=== PATIENT | male | born 1990 | race Caucasian/White ===

== ENCOUNTER 2020-01-03 08:41 | Emergency (ER) | payer SELFPAY ==
[~2020-01-03] VITALS: Ht 193 cm; Wt 82.6 kg
[2020-01-03] MEDS ORDERED: ONDANSETRON HCL INJ 2MG/ML 2ML 2 MG/ML VIAL IV STA (09:07)
[2020-01-03] MEDS ORDERED: SODIUM CHLORIDE 0.9% 1000ML 1,000 ML IV SCH (09:15)
--- NOTE | 2020-01-03 09:25 | Diagnostic Imaging Report ---
EXAMINATION: CXR 2 VIEW - HOPD INDICATION: Cough COMPARISON: None FINDINGS: LINES/TUBES:None LUNGS:The lungs are well-inflated. No focal consolidation or pulmonary edema. PLEURA:No pleural effusion or pneumothorax. MEDIASTINUM:The cardiomediastinal silhouette appears normal in size and shape. BONES/SOFT TISSUES:No acute osseous injury. ABDOMEN:No free air under the diaphragm. IMPRESSION: No focal pneumonia or pulmonary edema. Signed by: Cyndee Cabrales MD on 01/03/2020 9:23 AM
[2020-01-03 10:02] VITALS: BP 129/84
--- OUTSIDE RECORDS SUMMARY | 2020-01-03 19:35 | XMS REPORT ---
Author Author [facility] Address Unknown Phone Unavailable Care Team Providers Care Assistant Golf Professional Name Role Phone Jorge TAI Unavailable Unavailable Problems This patient has no known problems. Allergies, Adverse Reactions, Alerts This patient has no known allergies or adverse reactions. Medications This patient has no known medications. Results Test Description Test Time Test Comments Text Results Atomic Results Result Comments CXR 2 VIEW - HOPD 2020-01-03 09:17:[address] [address] Patient Name: CECI LAUREN MR #: [id number] : 1990 Age/Sex: 29/M Req #: [id number] Adm Physician: Ordered by: JONATHAN TAI MD Report #: [id number] Location: [facility] Room/Bed: Procedure: [id number] HOPD/CXR 2 VIEW - HOPD Exam Date: 01/03/20 Exam Time: 0914 REPORT STATUS: Signed EXAMINATION: CXR 2 VIEW - HOPD INDICATION: Cough COMPARISON: None FINDINGS: LINES/TUBES:None LUNGS:The lungs are well-inflated. No focal consolidation or pulmonary edema. PLEURA:No pleural effusion or pneumothorax. MEDIASTINUM:The cardiomediastinal silhouette appears normal in size and shape. BONES/SOFT TISSUES:No acute osseous injury. ABDOMEN:No free air under the diaphragm. IMPRESSION: No focal pneumonia or pulmonary edema. Signed by: Elmo Medina MD on 01/03/2020 9:23 AM Dictated By: ELMO MEDINA MD 2 Transcribed By: RESHMA on 01/03/20922 COPY TO: JONATHAN TAI MD
== END 2020-01-03 10:28 | disposition home or self-care (01) ==
LOC: FSED 08:41
DX: R05 Cough (principal); B34.9 Viral infection, unspecified
CPT/HCPCS: 71046; 80053; 81003; 85025; 99284; J2405; J7030